=== PATIENT | male | born 1970 | race Caucasian/White ===

== ENCOUNTER 2019-12-17 06:00 | Observation (INO) ==
--- NOTE | 2019-11-20 09:27 | Anesthesiology Consultation ---
Date of Service November 20, 2019 Assessment & Plan (1) Encounter for pre-operative examination: COVID Status: As of 11/19 assessment, patient denies travel to endemic area, known exposure/sick contacts, or symptoms of COVID19. Patient instructed that they and their household members must follow strict social distancing guidelines, wear a mask in public and avoid travel for 14 days prior to surgery. Preoperative COVID19 testing to be completed prior to surgery per surgeon's arra ngements. Patient made aware to self-isolate as much as possible between COVID testing and surgery. K+ of 5.5 on pre-op testing. Chart Review Chart Review: Acceptable Risk for Surgery (pending PCP optimization of K+) and Patient seen in Pre Admission Testing Teaching & Discussion Instructed NPO after midnight before surgery, except medications with 15 cc of water. Medication instructions provided according to the PAT guidelines. History Surgery Operation Date: 12/17/19 07:30 Proposed Procedures p Robotic Laparoscopic Assisted Retropubic Prostatectomy, Possible Open, Possib le Pelvic Lymph Node Dissectomy, Possible Suprapubic Tube Placement - Harpreet Pickett MD Height/Weight Height: 6 ft 1 in Weight: 87 kg Allergies Allergy/AdvReac Type Severity Reaction Status Date / Time Penicillins Allergy Unknown Unknown Verified 11/14/19 12:14 Medications Home Medications Medication Instructions Recorded Confirmed Last Taken No Known Home Medications 08/20/19 11/14/19 Unknown Past Medical History Medical History Hernia Currently with left inguinal hernia Past Family History Family History Father Prostate cancer Mother Hypertension Sister No problems noted. Son No problems noted. Daughter No problems noted. Uncle , Paternal uncle with metastatic prostate cancer Prostate cancer Past Surgical History Surgical History H/O right inguinal hernia repair History of vasectomy Past Anesthesia History No Hx of Anesthesia Complications and No Family Hx of Anesthesia Complications History of PONV No Hx of PONV and No Hx of Motion Sickness Social History Smoking Status: Former smoker Smoking cigarettes per day: Quit 15 yrs ago;Less than 1 PPD x 20 yrs; Do You Dip or Chew Tobacco: Yes (1 CAN PER DAY -- ADVISED NONE AM DOS) Smoking End Date: QUIT 20 YRS AGO Hx Alcohol Use: Yes Alcohol type: beer alcohol intake frequency: a few times a week Hx Substance Use: No Review of Systems Pt denies any recent chest pain, shortness of breath, palpitations, cough, fever, URI, or uncontrolled acid reflux. Physical Exam Vital Signs BP: 141/90 P: 71bpm SPO2: 98% RA T: 98.4 F R: 12 ENMT Mouth: no dental restorations, no chipped teeth and no loose teeth Thyromental Distance: < 3.5 Finger Breadths (3) Mallampati Class: I Neck normal visual inspection; neck extension not limited Respiratory normal respiratory effort Auscultation: lungs clear to auscultation bilaterally Cardiovascular Rate/Rhythm: regular rate and regular rhythm Heart Sounds: no murmur Testing Laboratory Results 11/20/19 09:34 11/20/19 09:34 Blood Type O Positive 11/20/19 09:34 Antibody Screen NEGATIVE 11/20/19 09:34 Electrocardiogram Date: 11/20/19 Findings: + NSR @ (68bpm) Chest X-Ray Date: 11/20/19 Findings: + NAD
--- NOTE | 2019-11-20 10:07 | XRay Report ---
TWO VIEW CHEST CLINICAL HISTORY: Preoperative examination. FINDINGS: PA and lateral chest radiographs are obtained. No prior studies are available for compariso n at the time of dictation. The cardiomediastinal silhouette is unremarkable. The lungs and pleural spaces are clear. There is no pneumothorax. The bony thorax appears intact. IMPRESSION: No active disease in the chest. ACT 112: Negative or not required by law. Electronically signed by: Jovany Mooney M.D. 11/20/2019 10:06 AM
[2019-11-20 10:25] LABS: Basophils # (auto) 0.01 K/uL (0-0.2); Basophils % (auto) 0.2 %; Eosinophils # (auto) 0.03 K/uL (0-0.5); Eosinophils % (auto) 0.7 %; Hematocrit (blood only) 48.2 % (42-52); Lymphocytes # (auto) 1.33 K/uL (1.2-3.4); Lymphocytes % (auto) 32.7 %; Mean Corpuscular Hemoglobin 31.9 pg (25-34); Mean Corpuscular Hgb Conc 33.2 g/dL (32-36); Mean Platelet Volume 10.3 fL (7.4-10.4); Monocytes # (auto) 0.36 K/uL (0.11-0.59); Monocytes % (auto) 8.8 %; Neutrophils # (auto) 2.34 K/uL (1.4-6.5); Neutrophils % (auto) 57.6 %; Platelet Count 197 K/uL (130-400); RDW Coefficient of Variation 12.7 % (11.5-14.5); RDW Standard Deviation 44.2 fL (36.4-46.3); Red Blood Count 5.02 M/uL (4.7-6.1); White Blood Count 4.07 K/uL (4.8-10.8)
[2019-11-20 10:34] LABS: BUN Creatinine Ratio 16.6 (10-20); Calcium 9.2 mg/dl (8.5-10.1); Creatinine Clr Calc Pharmacy 117.3 ml/min; Est GFR (African American) 118.6; Est GFR (Non-African American) 102.3; Potassium 5.5 mmol/L (3.5-5.1)
--- NOTE | 2019-11-20 11:54 | Electrocardiogram Report ---
Test Reason : Blood Pressure : / mmHG Vent. Rate : 068 BPM Atrial Rate : 068 BPM P-R Int : 132 ms QRS Dur : 102 ms QT Int : 390 ms P-R-T Axes : 081 079 067 degrees QTc Int : 414 ms Normal sinus rhythm Normal ECG No previous ECGs available Confirmed by Tadeo Toure ([id number]) on 11/20/2019 11:54:14 AM Referred By: Harpreet Pickett Confirmed By:Jamir Toure
[~2019-12-17 06:00] MED LIST: HEPARIN SOD 5,000 UNIT/0.5 ML VIAL SQ SCH; LR 15ML/HR IV SCH; ceFAZolin 2000MG 2,000 MG/15 ML SYR IV SCH
[2019-12-17] MEDS ORDERED: CLINDAMYCIN 900 MG in DEXTROSE 5% 50 ML IV STA (06:20)
[2019-12-17] MEDS ORDERED: ACETAMINOPHEN 1000 MG/100 ML IV IV ONE (06:23)
[2019-12-17] MEDS ORDERED: SUGAMMADEX SODIUM 200 MG/2 ML VIAL IV ONE (06:23)
[2019-12-17] MEDS ORDERED: ALBUMIN HUMAN 5% 12.5 GM/250 ML VIAL IV ONE (06:24)
[2019-12-17] MEDS ORDERED: fentaNYL citrate 100 MCG/2 ML VIAL ONE (06:39)
[2019-12-17] MEDS ORDERED: HYDROmorphone INJ 2 MG/ML SYR/VIAL ONE (06:39)
[2019-12-17] MEDS ORDERED: MIDAZOLAM HCL 1 MG/ML 2ML VIAL ONE (06:39)
[2019-12-17 06:59] LABS: Calcium 8.8 mg/dl (8.5-10.1); Creatinine Clr Calc Pharmacy 106.4 ml/min; Est GFR (African American) 107.3; Est GFR (Non-African American) 92.6; Potassium 3.9 mmol/L (3.5-5.1)
[2019-12-17] MEDS ORDERED: KETOROLAC 30 MG/ML VIAL IV PRN (07:08)
[2019-12-17] MEDS ORDERED: ATROPINE SULFATE 0.1 MG/ML 10ML SYR IV PRN (07:08)
[2019-12-17] MEDS ORDERED: ONDANSETRON INJ 2 MG/ML 2 ML VIAL IV PRN ×2 (07:08→13:33)
[2019-12-17] MEDS ORDERED: HYDROmorphone INJ 1 MG/ML SYRINGE IV PRN (07:08)
--- NOTE | 2019-12-17 07:08 | History & Physical Bridge Note ---
Date of Service December 17, 2019 History & Physical Bridge Note I have examined the patient, reviewed the History & Physical and in the interval since the performance of the History & Physical I have noted the following changes of clinical significance: no changes noted
--- NOTE | 2019-12-17 07:32 | History & Physical Report ---
Date of Service December 17, 2019 Assessment & Plan (1) Prostate cancer: Prostate ca - here for robotic prostatectomy with lymph node dissection - concurrent inguinal hernia repair with Dr. Giles History of Present Illness Primary Care Provider: Sha Martinez DO 49y/o male w/ prostate cancer and an inguinal hernia presenting for definitive treatment via prostatectomy Allergies Allergy/AdvReac Type Severity Reaction Status Date / Time Penicillins Allergy Unknown Unknown Verified 12/17/19 06:27 Home Medications Home Medications Medication Instructions Recorded Confirmed Type No Known Home Medications 08/20/19 12/17/19 History Past Med/Surg History Medical History Hernia Currently with left inguinal hernia Surgical History H/O right inguinal hernia repair History of vasectomy Family History Father Prostate cancer Mother Hypertension Sister No problems noted. Son No problems noted. Daughter No problems noted. Uncle , Paternal uncle with metastatic prostate cancer Prostate cancer Social History Smoking Status: Never smoker Cigarettes Per Day: Quit 15 yrs ago;Less than 1 PPD x 20 yrs;; Smoking End Date: QUIT 20 YRS AGO; Second Hand Exposure: No; Do You Dip or Chew Tobacco: Yes (1 CAN PER DAY -- ADVISED NONE AM DOS); Hx Alcohol Use: Yes Alcohol type: beer Hx Substance Use: No Preferred Language: Turkmen Communication Ability: Effective Visual Impairment: No Limitations Hearing Ability: Normal General Accounting Clerk Required: No Beliefs That Will Affect Care: None marital status: Current Living Situation: Spouse current occupational status: employed current occupation: [employer] Other Information That Helps Us Care for You: No Feels Safe at Home: Yes Safety Concerns: Feels Safe At This Time caffeine: Yes (2 cups/day) during the past year weight has: remained stable Assistive Devices: Contacts and Glasses Review of Systems All systems reviewed & are unremarkable except as noted in HPI & below Physical Exam Constitutional: well developed and well nourished; no acute distress and not ill appearing Eyes: normal visual huizar by confrontation ENMT: Ears: no hearing impairment Nose: no external nose abnormality Neck: normal visual inspection and trachea midline; no midline deformity Respiratory: normal respiratory effort; no respiratory distress and no labored breathing Chest (Breasts): Chest: normal inspection of chest Musculoskeletal: Head/Neck/Chest: + head abnormal to inspection, normocephalic and head atraumatic Skin: no rashes Trauma: no evidence of skin trauma Neurologic: awake; not confused and not obtunded Speech / Cognition: normal speech Motor/Sensory: no tremor Psychiatric: Orientation: alert and oriented x 3 Results & Data ([facility]) Vital Signs (Past 12 Hours) Vital Signs Temp Pulse Resp BP Pulse Ox 12/17/19 06:36 36.8 C 65 16 123/74 97 12/17/19 06:30 36.8 C 65 16 123/74 97
[2019-12-17] MEDS ORDERED: BUPIVACAINE 0.5 % 5 MG/1 ML MPF 30ML VIAL ONE (07:36)
[2019-12-17] MEDS ORDERED: BELLADONNA/OPIUM SUPP 60 MG SUPP PR ONE (08:07)
[2019-12-17] MEDS ORDERED: DEXAMETHASONE SOD INJ 4 MG/ML VIAL ONE (08:42)
[2019-12-17] MEDS ORDERED: PHENYLEPHRINE 100MCG/ML 5ML SYR ONE (08:42)
[2019-12-17] MEDS ORDERED: ROCURONIUM BROMIDE 10 MG/ML 5 ML VIAL IV ONE (08:42)
[2019-12-17] MEDS ORDERED: PROPOFOL IV EMULSION 10 MG/ML 20 ML VIAL IV ONE (08:42)
[2019-12-17] MEDS ORDERED: LIDOCAINE HCL 2% 2 ML VIAL/AMP(20MG/ML) INFIL ONE (08:42)
[2019-12-17] MEDS ORDERED: ePHEDrine sulfate 50 MG/ML SYR ONE (08:42)
[2019-12-17] MEDS ORDERED: ONDANSETRON INJ 2 MG/ML 2 ML VIAL ONE (08:42)
[2019-12-17] MEDS ORDERED: SURGICEL ABSORB HEMOSTAT 2IN X 14IN TOP ONE (08:53)
[2019-12-17] MEDS ORDERED: FLOSEAL HEMOSTATIC MATRIX 10ML TOP ONE (10:37)
--- NOTE | 2019-12-17 11:41 | Operative Report ---
PG Post Operative Report Pre & Post Diagnosis Operation Date: 12/17/19 07:30 Pre-Op Diagnosis: Prostate Cancer, Left inguinal hernia Post-Op Diagnosis: Prostate Cancer, Left inguinal hernia I identified the patient and participated in the time-out.: Yes Procedure Operation Date: 12/17/19 07:30 Actual Procedures p Robotic Laparoscopic-Assisted Retropubic Prostatectomy - Harpreet Pickett MD s Left Robotic Laparoscopic Inguinal Hernia Repair with Mesh(Left) - Dillon Giles MD Surgeon Tadeo Pickett MD Imaging Center Manager Kanika Chavarria co-surgeonDillon Giles; Estimated Blood Loss 50 Findings Consistent with Post-Op Diagnosis Specimens Periprostatic fat Prostate and seminal vesicles Description of Procedure The patient was identified in the preoperative holding area, appropriate informed consents were reviewed and completed, and he was transported to the operating suite. Subcutaneous heparin was administered in the pre-operative holding area. Upon arrival in the operating suite, he received appropriate antibiotics and general anesthesia. He was positioned in dorsal lithotomy, a B&O suppository was inserted after digital rectal exam, and he was prepped and draped in standard fashion. A Maldonado catheter was inserted in the sterile field. A Veress needle was passed per umbilicus with uniform insufflation of the abdomen to 15mmHg. He was placed in steep Trendelenburg position. A periumbilical incision was then made to accommodate a 12mm Visiport with 10mm 0degree laparoscope. Inspection of the abdomen was carried out, and there was no evidence of traumatic entry or injury secondary to the Veress needle. After confirming a clear anterior abdominal wall, ports were subsequently placed in standard robotic prostatectomy fashion without incident. At that time Dr. Giles took over the console and performed a left inguinal hernia repair. Mesh was placed. I temporarily tacked the peritoneum over the mesh utilizing a series of Weck clips. And then begin to proceed with the remaining portion of the standard prostatectomy. There were no complications to Dr. Giles's portion of the case. There was minimal blood loss. The left lateral aspect of the sigmoid was mobilized off of the left pelvic side wall to allow the pouch of Lit to be appropriately visualized. I then made an incision in the pouch of Lit, overlying the seminal vesicles. Both SVs as well as the ampullae of the vasa were entirely dissected, with the vasa transected 3cm from the prostate. The medial umbilical ligaments were then controlled with bipolar electrocautery just inferior to the umbilicus. Following cauterization, they were divided utilizing monopolar cautery. A peritoneal incision was carried from this location to the medial aspect of the internal inguinal rings bilaterally with care to avoid opening through the ring. This incision was concluded when the vas deferens was reached. Dissection of the bladder and prostate off of the posterior aspect of the pubic arch was completed allowing full visualization of the prostate. The fat overlying the prostate was removed en bloc and passed off the table as a specimen labeled "periprostatic fat". The endopelvic fascia was cleared during this portion of the procedure, and subsequently opened - first on the right and then the left. The incision through the endopelvic fascia began near the prostate-bladder junction and was carried to the apex with extreme care to preserve all lateral levator musculature as well as the periurethral musculature and sphincter complex. I additionally preserved the puboprostatic ligaments. I then controlled the DVC with a 2-0 V-lock suture in overlapping/figure of 8 fashion. This DVC complex was then tacked to the underside of the pubic symphysis utilizing the same stitch. My attention then returned to the prostate, with identification of the bladder neck aided by gentle traction on the Maldonado catheter and lateral to medial pressure at the presumed level of the bladder neck with the robotic instruments. An anterior cystotomy was made, the Maldonado balloon deflated and the catheter g uided through the incision to allow anterior retraction. I attempted to preserve maximal bladder neck musculature as I circumferentially dissected around the bladder neck. After incision through the posterior aspect of the mucosa, the dissection was carried through detrusor muscle until the bilateral ampullae of the vasa were identified. The previously dissected vasa and SVs were brought through the incision and used to elevated the prostate anteriorly. A posterior plane behind the prostate was then developed - splitting Denonvilliers's fascia. This dissection was carried as far as possible towards the apex as well as far as possible laterally. An incision in the lateral prostatic fascia was then made bilaterally to facilitate control of the vascular pedicles and preservation of the nerve bundles. Vasculature running along the posterior/lateral aspect of the prostate was preserved as well as the tissue containing the nerves. He appeared to have an excellent nerve sparing. The pedicles were then controlled with a series of Weck clips. The apical attachments of the prostate were remaining at that stage. The DVC was divided after control with bipolar cautery over the prostate. Continuous inspection from anterior and lateral views allowed me to closely follow the apical contour of the prostate and maximally preserve urethral length and tissue. The prostate was entirely freed at that point, and collected in an EndoCatch bag before being moved out of the field of vision. Hemostasis was confirmed and anastomosis of the bladder and urethra was completed utilizing a double armed V- Lock stitch. A new Maldonado catheter was inserted and the anastomosis tested with irrigation. There was no evidence of leak. FloSeal was placed around the anastomotic site. The robot was undocked, the specimen extracted through expansion of the ann marie- umbilical camera port. The fascia was closed with a series of 0-PDS figure of 8 stitches. The right assistant field hockey coach port was closed in two layers - with a figure of 8 0-Vicryl to reapproximate the fascia followed by 4-0 Monocryl to close the skin. Monocryl was used to close all other skin incisions. All wounds were dressed with Dermabond. The case was concluded and the patient taken to the PACU in stable condition. Kanika Chavarria assisted from incision to closure. Dr. Giles performed his portion of the case independently and will be dictating that separately. I attest to the content of the Intraoperative Record and any orders documented therein. Any exceptions are noted below.
--- NOTE | 2019-12-17 11:46 | Operative Report (OR) ---
DATE OF OPERATION: 12/17/2019 PREOPERATIVE DIAGNOSIS: Left inguinal hernia. POSTOPERATIVE DIAGNOSIS: Left indirect inguinal hernia. PROCEDURE: Laparoscopic robotic-assisted repair of left indirect inguinal hernia. SURGEON: Dillon Giles MD. IT TRAINING SPECIALIST: Tadeo Pickett MD. FINDINGS: The patient had a moderate-sized indirect inguinal hernia. There was no direct or femoral component. The cord structures appeared normal. TECHNIQUE: The access to the abdomen, placement of trocars and docking of the robot will be dictated by Dr. Pickett. Once that was accomplished, the instruments were passed. I attended the console. I opened the peritoneum approximately 5 cm anterior to the anterior surface of the internal ring beginning at the medial umbilical ligament and working laterally towards the ASIS. The medial dissection of the peritoneal flap was then performed working down towards the pubic bone until the pubic bone was identified. It was dissected approximately 2 cm posterior to the pubic bone. That dissection was performed using sharp cautery and blunt dissection where appropriate. I then performed the lateral dissection working from anterior to posterior as well. I then worked more medially and encountered the hernia sac. The hernia sac was grasped and dissected out of the canal using blunt cautery and sharp dissection where appropriate. The dissection was carried until the vas deferens was identified. The vas deferens and the venous vessels were fairly densely adherent to the hernia sac, and I had to use a millimeter by millimeter dissection until the adhesions became more flimsy and then was able to use blunt dissection to separate them. The 'Y' between the vas deferens and vessels was identified and was dissected for a centimeter and a half more posterior to that. I then performed additional medial and lateral dissection underneath the pubic bone until there was a space created from the line 2 cm posterior to the pubic bone laterally. A large Prograf inguinal hernia mesh was placed and it fit nicely. It was secured to the tissue just above the pubic bone and to the anterior abdominal wall medial and lateral to the vessels. This was done with a 3-0 Vicryl suture. The mesh was secured and fit nicely. The remainder of the prostatectomy procedure will be dictated by Dr. Pickett. I attest to the content of the Intraoperative Record and any orders documented therein. Any exception s are noted below.
[2019-12-17 12:04] LABS: Eosinophils # (auto) 0.01 K/uL (0-0.5); Eosinophils % (auto) 0.1 %; Hematocrit (blood only) 43.5 % (42-52); Hemoglobin 14.8 g/dL (14.0-18.0); Immature Granulocytes # (auto) 0.01 K/uL (0.00-0.02); Immature Granulocytes % (auto) 0.1 %; Lymphocytes # (auto) 0.73 K/uL (1.2-3.4); Lymphocytes % (auto) 8.2 %; Mean Corpuscular Hemoglobin 33.1 pg (25-34); Mean Corpuscular Volume 97.3 fL (80-100); Mean Platelet Volume 9.7 fL (7.4-10.4); Monocytes # (auto) 0.12 K/uL (0.11-0.59); Monocytes % (auto) 1.4 %; Neutrophils # (auto) 8.01 K/uL (1.4-6.5); Neutrophils % (auto) 90.2 %; Platelet Count 177 K/uL (130-400); RDW Coefficient of Variation 12.4 % (11.5-14.5); RDW Standard Deviation 44.3 fL (36.4-46.3); Red Blood Count 4.47 M/uL (4.7-6.1); White Blood Count 8.88 K/uL (4.8-10.8)
[2019-12-17 12:22] LABS: BUN Creatinine Ratio 10.5 (10-20); Calcium 8.3 mg/dl (8.5-10.1); Creatinine Clr Calc Pharmacy 81.3 ml/min; Est GFR (African American) 77.5; Est GFR (Non-African American) 66.8; Potassium 4.4 mmol/L (3.5-5.1)
--- NOTE | 2019-12-17 12:50 | Anesthesiology Progress Note ---
Date of Service December 17, 2019 Anesthesia Post Procedure Vital Signs Vital Signs: Temp Pulse Pulse Resp BP BP Pulse Ox 12/17/19 12:35 78 14 111/71 99 12/17/19 12:20 36.9 C 81 14 122/73 100 12/17/19 12:10 81 21 118/77 98 12/17/19 12:00 100 H 27 H 115/72 93 12/17/19 11:50 86 20 110/65 96 12/17/19 11:43 36.6 C 80 18 109/64 97 12/17/19 06:36 36.8 C 65 16 123/74 97 12/17/19 06:30 36.8 C 65 16 123/74 97 Transfer of Care Handoff Completed per policy Notes Mental Status: alert / awake / arousable Patient Amnestic to Procedure: Yes Nausea / Vomiting: adequately controlled Pain: adequately controlled Airway Patency, RR, SpO2: stable & adequate BP & HR: stable & adequate Hydration State: stable & adequate Anesthetic Complications: no major complications apparent
[2019-12-17] MEDS ORDERED: oxyCODONE HCL IR 5 MG TAB (IMMEDIATE RELEASE) PO PRN ×2 (13:33)
[2019-12-17] MEDS ORDERED: MoRPHine SULFATE 2 MG/ML CARP IV PRN ×2 (14:09→14:10)
[2019-12-17] MEDS: CLINDAMYCIN 900 MG in DEXTROSE 5% 50 ML IV SCH (15:40)
[2019-12-17] MEDS: LACTATED RINGER'S 1,000 ML IV SCH (15:40)
[2019-12-17] MEDS: HEPARIN SOD 5,000 UNIT/0.5 ML VIAL SQ SCH (21:10)
[2019-12-18] MEDS: CLINDAMYCIN 900 MG in DEXTROSE 5% 50 ML IV SCH ×2 (00:57→07:46)
[2019-12-18] MEDS: LACTATED RINGER'S 1,000 ML IV SCH ×2 (00:57→11:04)
[2019-12-18] MEDS: ACETAMINOPHEN 325 MG TAB PO PRN ×2 (03:35→09:58)
[2019-12-18] MEDS: HEPARIN SOD 5,000 UNIT/0.5 ML VIAL SQ SCH (07:46)
[2019-12-18 07:48] LABS: Basophils # (auto) 0.01 K/uL (0-0.2); Basophils % (auto) 0.1 %; Eosinophils # (auto) 0.01 K/uL (0-0.5); Eosinophils % (auto) 0.1 %; Hematocrit (blood only) 36.2 % (42-52); Hemoglobin 12.4 g/dL (14.0-18.0); Immature Granulocytes # (auto) 0.01 K/uL (0.00-0.02); Immature Granulocytes % (auto) 0.1 %; Lymphocytes # (auto) 1.43 K/uL (1.2-3.4); Lymphocytes % (auto) 16.8 %; Mean Corpuscular Hemoglobin 33.2 pg (25-34); Mean Corpuscular Hgb Conc 34.3 g/dL (32-36); Mean Corpuscular Volume 96.8 fL (80-100); Monocytes # (auto) 0.86 K/uL (0.11-0.59); Monocytes % (auto) 10.1 %; Neutrophils # (auto) 6.18 K/uL (1.4-6.5); Neutrophils % (auto) 72.8 %; Platelet Count 172 K/uL (130-400); RDW Coefficient of Variation 12.6 % (11.5-14.5); RDW Standard Deviation 44.2 fL (36.4-46.3); Red Blood Count 3.74 M/uL (4.7-6.1)
[2019-12-18 08:20] LABS: BUN Creatinine Ratio 11.4 (10-20); Calcium 8.3 mg/dl (8.5-10.1); Creatinine Clr Calc Pharmacy 117.3 ml/min; Est GFR (African American) 118.6; Est GFR (Non-African American) 102.3; Potassium 4.2 mmol/L (3.5-5.1)
--- NOTE | 2019-12-18 09:12 | Urology Progress Note ---
Date of Service December 18, 2019 Assessment & Plan (1) Prostate cancer: Postop day #1 status post robotic prostatectomy and left inguinal hernia repair Recovering appropriately Ambulatory Advance diet Home with Maldonado catheter Likely discharge this afternoon Admission and Anticipated Discharge Date Admission Date: December 17, 2019 Subjective Doing very well status post combined prostatectomy and left robotic inguinal hernia repair He is ambulatory He is not nauseated He has controlled pain The catheter is somewhat annoying but otherwise no subjective complaints Review of Systems Review of Systems: All systems reviewed & are unremarkable except as noted in HPI & below Physical Exam Physical Exam: Ecchymosis of the scrotum otherwise no bruising across the abdomen Incisions appropriate abdomen soft Results & Data ([facility]) Vital Signs (Past 12 Hours) Vital Signs Temp Pulse Resp BP Pulse Ox 12/18/19 08:00 37.3 C 88 18 133/87 96 12/18/19 03:55 36.7 C 75 22 116/75 95 12/17/19 23:44 37.2 C 74 20 124/66 94 PG Care Time/CCT Total # of Minutes Spent Total Time Spent with Patient: Total time spent is greater than 50% in coordination of care (as documented) at patient's floor/unit and/or counseling patient: Coding Level of Care Code None Diagnoses Prostate cancer C61
--- NOTE | 2019-12-19 09:30 | Discharge Summary ---
Date of Service December 19, 2019 Admission HPI Per Admitting Provider 49y/o male w/ prostate cancer and an inguinal hernia presenting for definitive treatment via prostatectomy Principal Diagnosis Prostate cancer Discharge Data Allergies Allergy/AdvReac Type Severity Reaction Status Date / Time Penicillins Allergy Unknown Unknown Verified 12/17/19 06:27 Procedures Performed Operation Date: 12/17/19 07:30 Actual Procedures p Robotic Laparoscopic-Assisted Retropubic Prostatectomy - Harpreet Pickett MD s Left Robotic Laparoscopic Inguinal Hernia Repair with Mesh(Left) - Dillon Giles MD Hospital Course (1) Prostate cancer: Patient admitted for a robotic prostatectomy - details of the procedure as dictated previously in my operative report - in summary, he tolerated the procedure very well - he was in stable condition overnight with appropriate urine output and stable labs - he was subsequently discharged home with a hernandez catheter - he was in stable condition at the time of discharge Total Time Total Time Spent Total Time Spent (In Minutes): 15 Total Time Includes: Examination of the Patient, Discharge Planning, Medication Reconciliation, Communication With Other Providers and Other Discharge Plan Discharge Items Patient Disposition: Home - Self-Care Reason For Visit: Prostate Cancer Discharge Diagnosis: Prostate Cancer Activity: Per Instructions section Lifting: No more than 25 pounds Bathing Comment: Ok to shower in 1 day, no tub bath or soaking Sexual Activity: Wait until after follow-up appointment Exercise/Sports: Wait until after follow-up appointment Driving/Machine Use: No driving while taking prescription pain medication Non-emergency contact: Urologist Call non-emergency contact if: your pain is not controlled, your pain is w orsening, your pain is concerning for you and you have a fever Follow-up/Referrals: Harpreet Pickett MD [Physician] - 12/30/19 8:45 am hSa Martinez DO [Primary Care Provider] - [facility],RN [FAKE FOR SCHEDULES] - 12/23/19 10:00 am Diet: Regular Addtl Attending Provider Instructions: Please take all medications as prescribed and keep all follow-ups as scheduled. Please call our office at [phone] with any questions, concerns or need to reschedule appointments for any reason. We are happy to assist you We have sent an antibiotic to your pharmacy of choice. Please begin antibiotic as prescribed the day BEFORE your scheduled voiding trial at [facility]. Please continue antibiotic every 12 hours through the day AFTER your voiding trial. Activity: We recommend having someone with you for the first few days after surgery to help care for you. For the first 2 weeks after surgery, we would like you to get up and walk around your house. However, we recommend limit physical activity that would increase your heart rate. This will allow your body to rest and heal. Take naps if you feel tired. Don't lift anything heavier than 10 pounds, mow the law or ride a bicycle until your follow-up appointment. Please avoid long car rides. Home Care: Unless directed otherwise, drink 6 to 8 glasses of water a day (enough to keep your urine light colored). This will also help keep a healthy flow of urine. We recommend using a stool softener for the first two weeks to avoid constipation. Hernandez Catheter or Suprapubic Catheter care: Keep the catheter well secured with either a leg back or leg strap with large bag. Empty your bag when it's about half full. You may notice some blood in the bag. This is normal after surgery and while the catheter is in place. Use mild soap (such as Dove or Dial) and water to wash the catheter and the head of your penis daily, or more frequently if needed. Return to your normal diet, we encourage good protein intake to promote healing. You may shower as normal. Please avoid tub baths or soaking until catheter removed and incisions well healed. Wearing sweat pants while you have the catheter is recommended, they will be more comfortable. Follow-up Your follow up appointments for having your catheter removed, and follow up with your physician should already be scheduled. If you have any questions regarding this, please contact our office. Your final pathology report will be discussed at your physician follow-up appointment. Call [facility] at [phone] right away if you have any of the following: Chest pain or trouble breathing (call [phone] or go to the hospital) Fever of 101F or higher, uncontrolled vomiting Heavy bleeding, clots, or bright red blood from the catheter Catheter that falls out or stops draining Foul-smelling discharge from your catheter Redness, swelling, warmth, or increased pain at your incision site Drainage, pus, or bleeding from your incision Pending Studies at Discharge: Yes Stand-Alone Forms: My [facility], Opioid Pain Management, Smoking Cessation Medications and DC Order Prescriptions: New oxycodone-acetaminophen [Percocet] 5-325 mg tablet 1 tab PO TID PRN (Reason: pain) Qty: 7 RF: 0 docusate sodium [Colace] 100 mg capsule 100 mg PO BID Qty: 60 RF: 0 ciprofloxacin HCl 500 mg tablet 500 mg PO BID 3 Days Qty: 6 RF: 0 No Action No Known Home Medications RF: 0 Discharge Orders: Discharge Order (Routine); Ordered 12/18/19 Ordered By: Kanika Gasca/Other Patient Handouts: Emptying and Cleaning Your ..., Indwelling Urinary Catheter Dc, Discharge Instructions Caring for ... Admission Data Admit Date/Time: 12/17/19 07:33 Attending Provider: Harpreet Pickett Admit Provider: Harpreet Pickett Primary Care Provider: Sha Martinez Other Interventions: Discharge Summary Assessment (RN) Last Done: 12/18/19 11:05 Coding Level of Care Code D/C Day Management <30 mins Diagnoses Prostate cancer C61
== END 2019-12-18 13:37 | disposition home or self-care (01) ==
LOC: ASU 06:00 → INTOOBSV 07:33 → 3N 07:33

== ENCOUNTER 2020-01-04 13:49 | Inpatient (IN) ==
[2020-01-04] MEDS ORDERED: SODIUM CHLORIDE 0.9% 1000ML 1,000 ML IV ONE ×2 (14:28→15:39)
--- NOTE | 2020-01-04 14:32 | Emergency Department Note ---
Impression & Plan BRADLEY (acute kidney injury), Hernia, Abdominal pain ED Provider Note NAME: BRIANNA FARLEY AGE: 49 SEX: M : 1970 ARRIVES VIA: Walk-In INFORMANT: Patient ED PROVIDER(S): Justino Pugh DO CHIEF COMPLAINT: Left lower quadrant abdominal pain HPI: Patient is a 49-year-old male status post prostate surgery and left inguinal hernia repair by Dr. Pickett and Dr. Giles performed on the third of this month. He presents for dysuria after urinating since this past Monday. Pain has become worse and is worse with walking now. He also noticed a mass in his left groin/scrotum. He denies any urgency or frequency. No nausea, vomiting or diarrhea. Last bowel movement was within the past 24 hours. Pain is dull and the longest that its last after urinating is an hour. He did talk with Dr. Pickett's office last night and they prescribed him a pill to change the color of his urine. He has not taken it since last night. ROS: See above HPI for pertinent positives & negatives. A total of 10 systems reviewed and were otherwise negative. PAST MEDICAL HISTORY:See Below PAST SURGICAL HISTORY:See Below FAMILY HISTORY:See Below SOCIAL HISTORY:See Below HOME MEDICATIONS:See Below ALLERGIES:See Below VITALS:See Below PHYSICAL EXAMINATION: GENERAL: Sitting up in bed, alert, well appearing, well nourished, no distress, non-toxic EYE EXAM: normal conjunctiva. OROPHARYNX: no exudate, no erythema, lips, buccal mucosa, and tongue normal and mucous membranes are moist NECK: supple, no nuchal rigidity, no adenopathy, non-tender LUNGS: Clear to auscultation. Normal chest wall mechanics HEART: no murmurs, S1 normal and S2 normal ABDOMEN: abdomen soft, non-tender, normo-active bowel sounds, no masses, no rebound or guarding. : Normal external genitalia with a firm palpable mass in the left inguinal canal tracking down to the scrotum SKIN: Abdominal port incisions are clean dry and intact UPPER EXTREMITIES: upper extremities are grossly normal. LOWER EXTREMITIES: No pitting edema. NEURO EXAM: Normal sensorium, cranial nerves II-XII grossly intact, normal speech, no gross weakness of arms, no gross weakness of legs. MEDICAL DECISION MAKING: Patient is a 49-year-old male who presents the ER status post prostate surgery and left inguinal hernia repair for pain after urination which has been present since this past Monday. He is not been eating and drinking as much as usual due to the pain. IV was established blood work was obtained. Labs show no significant leukocytosis or anemia. BMP with a creatinine of 2.38 up from a baseline of 0.78. LFTs bilirubin was unremarkable. Lipase was normal. UA had no white cells or leukocytes but did have nitrates. With the nitrites was concern for possible UTI and did cover him with a gram of Rocephin. Covid was negative. Patient was given IV fluids. CT abdomen pelvis showed a left inguinal hernia but no other acute pathology and patient was updated bedside dis cussed with hospitalist for further evaluation due to the acute kidney injury. Triage Nursing notes reviewed. Prior medical records reviewed Vital Signs: reviewed and remarkable for tachy Differential diagnosis: Differential diagnoses includes but is not limited to gastritis, peptic ulcer disease, GERD, gallbladder disease, pancreatitis, small bowel obstruction, acute coronary syndrome, pericarditis, ischemic bowel, irritable bowel disease, ir ritable bowel syndrome, appendicitis, diverticulitis, malignancy, hernia, urinary tract infection, torsion, [/ectopic (if female)], perforation, trauma, infectious. ER treatment provided: See below Diagnostics interpreted by me: ECG: Sinus rhythm rate of 65 First-degree AV block No PVCs QTC 428 T wave inversion in lead III No significant change from previous performed in November 2019 Cardiac Monitoring: An order was placed for continuous cardiac monitoring. The monitor shows a rate of 69 with sinus rhythm. Laboratory studies: As stated above and show below. Imaging studies: CT abdomen pelvis confirms left inguinal hernia but no other acute pathology Consultation(s): Discussed with the hospitalist Dr. Jess Carpenter for further evaluation ED COURSE: Procedures: none Critical Care: None Past Med/Surg History Medical History (Updated 01/04/20 @ 19:55 by Justino Pugh DO) Hernia Currently with left inguinal hernia Surgical History H/O right inguinal hernia repair History of vasectomy Family History Father Prostate cancer Mother Hypertension Sister No problems noted. Son No problems noted. Daughter No problems noted. Uncle , Paternal uncle with metastatic prostate cancer Prostate cancer Social History (Updated 01/04/20 @ 16:22 by Jess Carpenter DO) Smoking Status: Former smoker Cigarettes Per Day: 1 CAN/DAY; Number of Years Since Quit: 20; Second Hand Exposure: No; Do You Dip or Chew Tobacco: Yes; Hx Alcohol Use: Yes Alcohol type: beer Alcohol Intake Frequency Comment: 1- 2x/week Hx Substance Use: No Preferred Language: Azeri Communication Ability: Effective Visual Impairment: No Limitations Hearing Ability: Normal [employer] Required: No Beliefs That Will Affect Care: None marital status: Current Living Situation: Spouse current occupational status: employed current occupation: [employer] Other Information That Helps Us Care for You: No Feels Safe at Home: Yes Safety Concerns: Feels Safe At This Time caffeine: Yes (2 cups/day) during the past year weight has: remained stable Assistive Devices: None Allergies Allergies Allergy/AdvReac Type Severity Reaction Status Date / Time Penicillins Allergy Unknown Unknown Verified 01/04/20 15:01 Home Meds Home Medications Medication Instructions Recorded Confirmed tadalafil 5.5 mg PO DAILY PRN 01/04/20 01/04/20 Previous Rx's Medication Instructions Recorded phenazopyridine 100 mg tablet 100 mg PO TID PRN #10 tab 01/03/20 Results & Data (ED) Vital Signs Vital Signs - 24 hr 01/04/20 14:02 01/04/20 14:08 01/04/20 15:50 Temperature 37.3 C Temperature Source Oral Pulse Rate 107 H Pulse Rate [Apical] 75 Respiratory Rate 20 18 Respiratory Effort / Characteristics Non-Labored Respiratory Depth Normal Respiratory Pattern Regular Blood Pressure 138/77 Blood Pressure [Left Arm] 127/86 Blood Pressure Mean 97 Blood Pressure Mean [Left Arm] 99 Blood Pressure Position Sitting Pulse Oximetry 97 97 97 Oxygen Delivery Method Room Air Room Air Room Air Sepsis Recent Fever Within 48 Hours No Sepsis New/Unexplained Change in Mental Status No Sepsis Action Taken by Nursing No Action Required Laboratory Data Result diagrams: 01/04/20 14:28 01/04/20 14:28 Lab Results 01/04/20 01/04/20 01/04/20 Range/Units 14:28 14:28 14:30 WBC 8.87 (4.8-10.8) K/uL RBC 4.71 (4.7-6.1) M/uL Hgb 15.4 (14.0-18.0) g/dL Hct 44.7 (42-52) % MCV 94.9 (80-100) fL MCH 32.7 (25-34) pg MCHC 34.5 (32-36) g/dL RDW Std Deviation 42.2 (36.4-46.3) fL RDW Coeff of Yenny 12.2 (11.5-14.5) % Plt Count 291 (130-400) K/uL MPV 9.7 (7.4-10.4) fL Immature Gran % (Auto) 0.2 % Neut % (Auto) 68.1 % Lymph % (Auto) 15.0 % [place] % (Auto) 10.0 % Eos % (Auto) 6.4 % Baso % (Auto) 0.3 % Neut # (Auto) 6.03 (1.4-6.5) K/uL Lymph # (Auto) 1.33 (1.2-3.4) K/uL [place] # (Auto) 0.89 H (0.11-0.59) K/uL Eos # (Auto) 0.57 H (0-0.5) K/uL Baso # (Auto) 0.03 (0-0.2) K/uL Immature Gran # (Auto) 0.02 (0.00-0.02) K/uL Sodium 137 (136-145) mmol/L Potassium 4.2 (3.5-5.1) mmol/L Chloride 105 (98-107) mmol/L Carbon Dioxide 28 (21-32) mmol/L Anion Gap 5.0 (3-11) BUN 25 H (7-18) mg/dl Creatinine 2.38 H (0.6-1.4) mg/dl Est Cr Clr Drug Dosing 42.1 ml/min Est GFR ( Amer) 36.3 Est GFR (Non-Af Amer) 31.3 BUN/Creatinine Ratio 10.5 (10-20) Glucose 98 (70-99) mg/dl Calcium 9.5 (8.5-10.1) mg/dl Total Bilirubin 0.9 (0.2-1) mg/dl AST 14 L (15-37) U/L ALT 34 (12-78) U/L Alkaline Phosphatase 91 (45-117) U/L Total Protein 7.8 (6.4-8.2) gm/dl Albumin 3.7 (3.4-5.0) gm/dl Globulin 4.1 H (2.5-4.0) gm/dl Albumin/Globulin Ratio 0.9 (0.9-2) Lipase 85 (73-393) U/L Urine Color Dark Yellow Urine Appearance Clear (Clear) Urine pH 6.5 (4.5-7.5) Ur Specific [place] 1.021 (1.000-1.030) Urine Protein 1+ H (Negative) Urine Glucose (UA) Negative (Negative) Urine Ketones 1+ H (Negative) Urine Blood 3+ H (Negative) Urine Nitrite Positive A (Negative) Urine Bilirubin Negative (Negative) Urine Urobilinogen Negative (Negative) Ur Leukocyte Esterase Negative (Negative) Urine WBC (Auto) 1-5 (0-5) /hpf Urine RBC (Auto) >30 H (0-4) /hpf U Hyaline Cast (Auto) 0 (0-5) /lpf U Epithel Cells (Auto) 5-10 H (0-5) /lpf Urine Bacteria (Auto) Negative (Negative) Administered Medications Sodium Chloride (1/2 Nss) 1,000 mls @ 80 mls/hr IV .[id number] MARILYN Stop: 02/03/20 18:23 Last Admin: 01/04/20 18:34 Dose: 80 mls/hr Documented by: [id number] Discontinued Medications Sodium Chloride (Nss 1000ml) 1,000 mls @ 999 mls/hr IV .Q1H1M ONE Stop: 01/04/20 15:28 Last Infusion: 01/04/20 16:02 Dose: 0 mls/hr Documented by: [id number] Admin: 01/04/20 14:46 Dose: 999 mls/hr Documented by: [id number] Ceftriaxone Sodium (Rocephin) 1,000 mg in 50 mls @ 100 mls/hr IV NOW STA Stop: 01/04/20 16:08 Last Infusion: 01/04/20 16:31 Dose: 0 mls/hr Documented by: [id number] Admin: 01/04/20 16:00 Dose: 100 mls/hr Documented by: [id number] Sodium Chloride (Nss 1000ml) 1,000 mls @ 999 mls/hr IV .Q1H1M ONE Stop: 01/04/20 16:39 Last Infusion: 01/04/20 17:06 Dose: 0 mls/hr Documented by: [id number] Admin: 01/04/20 16:00 Dose: 999 mls/hr Documented by: [id number] Discharge Plan Visit Data Chief Complaint: Abdominal Pain Stated Complaint: REMOVAL PROSTATE/HERNIA REPAIR IN [place]IN [place]S ED Provider: Justino Pugh Discharge Problem: BRADLEY (acute kidney injury), Hernia, Abdominal pain Patient Disposition: Admitted As Inpatient Discharge Instructions Interventions: ED Discharge Assessment Last Done: 01/04/20 17:31 Discharge Problem: Abdominal pain Qualifiers: Abdominal location: unspecified location Qualified Code(s): R10.9 - Unspecified abdominal pain
[2020-01-04 14:37] LABS: Basophils # (auto) 0.03 K/uL (0-0.2); Basophils % (auto) 0.3 %; Eosinophils # (auto) 0.57 K/uL (0-0.5); Eosinophils % (auto) 6.4 %; Hematocrit (blood only) 44.7 % (42-52); Hemoglobin 15.4 g/dL (14.0-18.0); Immature Granulocytes # (auto) 0.02 K/uL (0.00-0.02); Immature Granulocytes % (auto) 0.2 %; Lymphocytes # (auto) 1.33 K/uL (1.2-3.4); Mean Corpuscular Hemoglobin 32.7 pg (25-34); Mean Corpuscular Hgb Conc 34.5 g/dL (32-36); Mean Corpuscular Volume 94.9 fL (80-100); Mean Platelet Volume 9.7 fL (7.4-10.4); Monocytes # (auto) 0.89 K/uL (0.11-0.59); Neutrophils # (auto) 6.03 K/uL (1.4-6.5); Neutrophils % (auto) 68.1 %; Platelet Count 291 K/uL (130-400); RDW Coefficient of Variation 12.2 % (11.5-14.5); RDW Standard Deviation 42.2 fL (36.4-46.3); Red Blood Count 4.71 M/uL (4.7-6.1); White Blood Count 8.87 K/uL (4.8-10.8)
[2020-01-04 14:53] LABS: Albumin Level 3.7 gm/dl (3.4-5.0); BUN Creatinine Ratio 10.5 (10-20); Calcium 9.5 mg/dl (8.5-10.1); Creatinine Clr Calc Pharmacy 42.1 ml/min; Est GFR (African American) 36.3; Est GFR (Non-African American) 31.3; Potassium 4.2 mmol/L (3.5-5.1)
[2020-01-04 14:56] LABS: Albumin Globulin Ratio 0.9 (0.9-2); Bilirubin,Total 0.9 mg/dl (0.2-1); Globulin 4.1 gm/dl (2.5-4.0); Total Protein 7.8 gm/dl (6.4-8.2)
[2020-01-04 15:10] LABS: Appearance Urine Clear (Clear); Bacteria Urine Automated Negative (Negative); Bilirubin Urine Negative (Negative); Blood Urine 3+ (Negative); Cast Urine Automated 0 /lpf (0-5); Color Urine Dark Yellow; Glucose Urine UA Negative (Negative); Ketones Urine 1+ (Negative); Leukocyte Esterase Urine Negative (Negative); Nitrite Urine Positive (Negative); Protein Urine 1+ (Negative); RBC Urine Automated >30 /hpf (0-4); Specific Gravity Urine 1.021 (1.000-1.030); Urobilinogen Urine Negative (Negative); pH Urine 6.5 (4.5-7.5)
--- NOTE | 2020-01-04 15:29 | CT Scan Report ---
ABDOMEN AND PELVIS CT WITHOUT CONTRAST CT DOSE: 396.39 mGy.cm HISTORY: lower abd pain BRADLEY w/ ? hernia l groin TECHNIQUE: Multiaxial CT images of the abdomen and pelvis were performed without contrast. A dose lo wering technique was utilized adhering to the principles of ALARA. COMPARISON STUDY: None. FINDINGS: The lung bases are essentially clear. No pneumoperitoneum. No pneumatosis. No fractures wit hin the visualized osseous structures. There is a small fluid-filled left inguinal hernia. Small amou nt of scattered low density fluid consistent with ascites. Mild bladder wall thickening. The unenhanc ed liver, gallbladder, spleen, adrenal glands, pancreas, and kidneys are unremarkable. No hydronephro sis. No retroperitoneal lymphadenopathy. Normal caliber abdominal aorta. Suboptimal evaluation for hal wel pathology due to the lack of intravenous and oral contrast. However, there is no definite bowel w all thickening or obstruction. The appendix is partially obscured by the ascites but appears to be no rmal in caliber. IMPRESSION: 1. Small fluid filled left inguinal hernia. 2. Small amount of scattered ascites. 3. Mild bladder wall thickening. Recommend correlation with urinalysis to exclude a cystitis. 4. No definite bowel wall thickening or obstruction. ACT 112: Negative or not required by law. Electronically signed by: Levon Lyman M.D. 01/04/2020 3:27 PM
[2020-01-04] MEDS ORDERED: cefTRIAXone SODIUM 1,000 MG/50 ML BAG IV STA (15:39)
--- NOTE | 2020-01-04 16:19 | History & Physical Report ---
Date of Service January 04, 2020 Assessment & Plan (1) Dysuria: Possible UTI CT AP notes cystitis UA neg for leuk est, + for nitrites Urine cx pending Given sx and recent prostatectomy, will continue ceftriaxone as started in the ED Pyridimine PRN (2) BRADLEY (acute kidney injury): Dehydration Monitor with IVF (3) Gross hematuria: (4) Prostate cancer: s/p prostatectomy and L inguinal hernia repair on 12/[address] Pickett and Dr. Giles (5) DVT prophylaxis: SCDs History of Present Illness Primary Care Provider: Sha Martinez DO 49 y/o M c/o pain with urination. Pt is s/p prostatectomy and L inguinal hernia repair on 12/[address] Pickett and Chan. He was doing quite well until around Monday when he started to have lower abd pain with urination only. This continued to become more intense and starting yesterday, pt noted lower abd pain with ambulation as well. He called Dr. Pickett's office and was given a prescription for pyridimine. This did not help at all. He has been passing small blood clots periodically since his surgery, but there has been more clots passed in the last few days. Over the last week his PO intake has dropped as well due to lack of appetite and wanting to not urinate as often due to the pain. He has no prior hx of similar sx. Pt denies fever, SOB, chest pain, n/v/c/d, LE pain or swelling. Allergies Allergy/AdvReac Type Severity Reaction Status Date / Time Penicillins Allergy Unknown Unknown Verified 01/04/20 15:01 Home Medications Medication Instructions Recorded Confirmed Type phenazopyridine 100 mg tablet 100 mg PO TID PRN #10 tab 01/03/20 01/04/20 Rx tadalafil 5.5 mg PO DAILY PRN 01/04/20 01/04/20 History Past Med/Surg History Medical History (Updated 01/04/20 @ 16:24 by Jess Carpenter DO) Hernia Currently with left inguinal hernia Surgical History H/O right inguinal hernia repair History of vasectomy Family History Father Prostate cancer Mother Hypertension Sister No problems noted. Son No problems noted. Daughter No problems noted. Uncle , Paternal uncle with metastatic prostate cancer Prostate cancer Social History (Updated 01/04/20 @ 16:22 by Jess Carpenter DO) Smoking Status: Former smoker Cigarettes Per Day: 1 CAN/DAY; Number of Years Since Quit: 20; Second Hand Exposure: No; Do You Dip or Chew Tobacco: Yes; Hx Alcohol Use: Yes Alcohol type: beer Alcohol Intake Frequency Comment: 1- 2x/week Hx Substance Use: No Preferred Language: Spanish Communication Ability: Effective Visual Impairment: No Limitations Hearing Ability: Normal Branch [employer] Required: No Beliefs That Will Affect Care: None marital status: Current Living Situation: Spouse current occupational status: employed 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 Other Information That Helps Us Care for You: No Feels Safe at Home: Yes Safety Concerns: Feels Safe At This Time caffeine: Yes (2 cups/day) during the past year weight has: remained stable Assistive Devices: None Review of Systems Review of Systems: Pertinent positives and negatives reviewed in HPI--all others negative Physical Exam Constitutional: WD/WN, vitals as above Eyes: normal visual huizar by confrontation and + anicteric sclerae Neck: normal visual inspection and trachea midline Respiratory: normal respiratory effort, lungs clear to auscultation Cardiovascular: Rate/Rhythm: regular rate and regular rhythm Gastrointestinal (Abdomen): Inspection/Auscultation: abdomen not distended Percussion/Palpation: + abdomen tender (mild along lower abdomen) and abdomen soft Musculoskeletal: Head/Neck/Chest: normocephalic and head atraumatic negative for edema, peripheral pulses intact Skin: no rashes, warm and dry Neurologic: awake; not confused Speech / Cognition: normal speech Psychiatric: A+Ox3, euthymic affect Results & Data Results & Data ([facility]) Vital Signs (Past 12 Hours) Vital Signs Temp Pulse Resp BP Pulse Ox 01/04/20 14:08 97 01/04/20 14:02 37.3 C 107 H 20 138/77 97 Diagnostic Findings CTAP: 1. Small fluid filled left inguinal hernia. 2. Small amount of scattered ascites. 3. Mild bladder wall thickening. Recommend correlation with urinalysis to exclude a cystitis. 4. No definite bowel wall thickening or obstruction. Code Status & VTE Plan Code Status Full code VTE Prophylaxis Plan VTE Prophylaxis will be ordered: Yes PG Care Time/CCT Total # of Minutes Spent Total Time Spent with Patient: Total time spent is greater than 50% in coor dination of care (as documented) at patient's floor/unit and/or counseling patient: Coding Level of Care Code 92680 Initial Inpt Care Lvl 3 Diagnoses Dysuria R30.0 BRADLEY (acute kidney injury) N17.9 Gross hematuria R31.0 Prostate cancer C61 DVT prophylaxis Z29.9
[2020-01-04] MEDS ORDERED: MAGNESIUM HYDROXIDE SUSP 30 ML UDC PO PRN (18:24)
[2020-01-04] MEDS ORDERED: PHENAZOPYRIDINE HCL 100 MG TAB PO PRN (18:24)
[2020-01-04] MEDS ORDERED: NON-FORMULARY MEDICATION (Tadalafil 5 mg tablet) PO PRN (18:24)
[2020-01-04] MEDS ORDERED: ONDANSETRON INJ 2 MG/ML 2 ML VIAL IV PRN (18:24)
[2020-01-04] MEDS: SODIUM CHLORIDE 0.45 % 1,000 ML IV SCH (18:34)
[2020-01-05] MEDS: ACETAMINOPHEN 325 MG TAB PO PRN ×3 (03:53→11:15)
[2020-01-05] MEDS: cefTRIAXone SODIUM 2,000 MG in DEXTROSE 5% 50 ML IV SCH (05:28)
[2020-01-05 06:02] LABS: Basophils # (auto) 0.02 K/uL (0-0.2); Basophils % (auto) 0.3 %; Eosinophils # (auto) 0.56 K/uL (0-0.5); Eosinophils % (auto) 7.5 %; Hematocrit (blood only) 40.1 % (42-52); Hemoglobin 13.6 g/dL (14.0-18.0); Immature Granulocytes # (auto) 0.02 K/uL (0.00-0.02); Immature Granulocytes % (auto) 0.3 %; Lymphocytes # (auto) 1.37 K/uL (1.2-3.4); Lymphocytes % (auto) 18.3 %; Mean Corpuscular Hemoglobin 32.6 pg (25-34); Mean Corpuscular Hgb Conc 33.9 g/dL (32-36); Mean Corpuscular Volume 96.2 fL (80-100); Monocytes # (auto) 0.58 K/uL (0.11-0.59); Monocytes % (auto) 7.8 %; Neutrophils # (auto) 4.93 K/uL (1.4-6.5); Neutrophils % (auto) 65.8 %; Platelet Count 285 K/uL (130-400); RDW Coefficient of Variation 12.3 % (11.5-14.5); RDW Standard Deviation 43.2 fL (36.4-46.3); Red Blood Count 4.17 M/uL (4.7-6.1); White Blood Count 7.48 K/uL (4.8-10.8)
[2020-01-05 06:27] LABS: BUN Creatinine Ratio 11.2 (10-20); Calcium 8.8 mg/dl (8.5-10.1); Creatinine Clr Calc Pharmacy 42.8 ml/min; Est GFR (Non-African American) 31.9; Potassium 4.4 mmol/L (3.5-5.1)
[2020-01-05] MEDS: SODIUM CHLORIDE 0.45 % 1,000 ML IV SCH ×2 (07:05→16:44)
--- NOTE | 2020-01-05 10:25 | Urology Consultation ---
Date of Consultation January 05, 2020 Assessment & Plan (1) Abdominal pain: Discussed options. Discussed imaging. Discussed Incomplete emptying and UTI with discomfort and abd pain. Discussed kidney function and concern with increasing Cr this morning with hydration. Discussed options for management. Dicussed cathter placement. Risks and benefits discussed. 16 Fr Coude hernandez placed by myself by standard sterile technique without major issues. Tolerated. 500 cc of dark yellow urine immediately drained. Will maintain through today. Plan to reassess in AM and monitor for change. Continue with supportive care. Patient's complicated medical and surgical history was reviewed and summarized above. All imaging was reviewed and read by myself. We will continue to monitor and plan to monitor with supportive care (2) BRADLEY (acute kidney injury): (3) Gross hematuria: (4) Prostate cancer: History of Present Illness Attending Physician: Jess Carpenter, History of Present Illness Consult for urinary issues with incomplete emptying and possible retention with UTI and BRADLEY. History of RALP approx 3 weeks ago. Patient has mild to moderate discomfort in pelvis and groin going to back and side in waves. Had been severe over weekend. Medications were not helping. Had worsened into Monday and came to ER. UTI like symptoms as well. Has been deconditioned from this. Has decreased mobility significantly with acute issues. Patient has not had complete return to normal bowel function. Denies bleeding. No severe nausea or vomiting. Currently no fevers. Discussed with patient multifactorial nature of urinary issues, retention, and incomplete bladder emptying. Patient had recent major pelvic surgery. Has not had considerable leaking. Discussed concerns and issues. Discussed decreased mobility and trouble voiding. Discussed issues related to deconditioning and weakened state. Discussed possibility that patient had more moderate to severe issues and with the acute illness and deconditioning these issues became more prevalent and obvious. Discussed bowel function and possible issues related to decrease in function and its relation to other pelvic organs and systems. Discussed different medications, will use during hospitalization and their effect on ability to empty. Discussed options with increasing cr and concern for worsening of BRADLEY Allergies Allergy/AdvReac Type Severity Reaction Status Date / Time Penicillins Allergy Unknown Unknown Verified 01/04/20 15:01 Home Medications Medication Instructions Recorded Confirmed Type phenazopyridine 100 mg tablet 100 mg PO TID PRN #10 tab 01/03/20 01/04/20 Rx tadalafil 5.5 mg PO DAILY PRN 01/04/20 01/04/20 History Patient History Medical History Hernia Currently with left inguinal hernia Surgical History H/O right inguinal hernia repair History of vasectomy Family History Father Prostate cancer Mother Hypertension Sister No problems noted. Son No problems noted. Daughter No problems noted. 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 Patient is well nourished and well kept. HEENT: Normocephalic Atraumatic. Inspection normal. Cranial Nerves 2-12 Grossly intact. Nares are clear. Neck is supple. Normal inspection of face. Normal inspection of neck. Neurologic: No deficits on inspection. Baseline for motor function and sensory. Psychologic: Normal affect. Respiratory: Nonlabored. No use of accessory muscles. No tachypnea or dyspnea. Cardiovascular: No tachycardia Skin: [place] and Dry. No rashes or visible lesions. Extremities: Moving without issues. No motor deficits on inspection Lymphatics: No edema Abdomen: Soft Non-distended. No acites. No rebound or guarding. Results & Data ([facility]) Vital Signs (Past 12 Hours) Vital Signs Temp Pulse Resp BP Pulse Ox 01/05/20 07:57 36.7 C 65 18 116/76 97 01/04/20 23:00 37.2 C 18 105/50 L 97 PG Care Time/CCT Total # of Minutes Spent Total Time Spent with Patient: Total time spent is greater than 50% in coordination of care (as documented) at patient's floor/unit and/or counseling patient: Coding Level of Care Code 10073 Inpt Consult Level 5 Diagnoses Abdominal pain R10.9 Abdominal location: unspecified location BRADLEY (acute kidney injury) N17.9 Gross hematuria R31.0 Prostate cancer C61 (1) Abdominal pain Abdominal location: unspecified location Qualified Code(s): R10.9 - Unspecified abdominal pain
--- NOTE | 2020-01-05 14:56 | Hospitalist Progress Note ---
Date of Service January 05, 2020 Assessment & Plan (1) Dysuria: Possible UTI CT AP notes cystitis UA neg for leuk est, + for nitrites Urine cx pending Given sx and recent prostatectomy, will continue ceftriaxone as started in the ED Pyridimine PRN Urology c/s, hernandez placed with 500cc urine drained immediately Will keep hernandez and monitor UOP (2) BRADLEY (acute kidney injury): Dehydration Monitor with IVF IVF increased as no improvement overnight, slight improvement in cr at 3p draw Repeat in AM (3) Gross hematuria: (4) Prostate cancer: s/p prostatectomy and L inguinal hernia repair on 12/[address] Pickett and Dr. Giles (5) DVT prophylaxis: SCDs Admission and Anticipated Discharge Date Admission Date: January 04, 2020 Subjective Pt states that he is still having lower abd pain, but it is not as burning as prior. Ongoing clots in urine, but less. Pt denies fever, SOB, chest pain, n/v/c/d, LE pain or swelling. Tolerating PO without issue. Pt was awaiting urology c/s at time of our discussion. Review of Systems Review of Systems: Pertinent positives and negatives reviewed in HPI--all others negative Physical Exam Constitutional: WD/WN, vitals as above Eyes: normal visual huizar by confrontation and + anicteric sclerae Neck: normal visual inspection and trachea midline Respiratory: normal respiratory effort, lungs clear to auscultation Cardiovascular: Rate/Rhythm: regular rate and regular rhythm Gastrointestinal (Abdomen): Inspection/Auscultation: abdomen not distended Percussion/Palpation: + abdomen tender (mild along lower abdomen) and abdomen soft Musculoskeletal: Head/Neck/Chest: normocephalic and head atraumatic Skin: no rashes, warm and dry Neurologic: awake; not confused Speech / Cognition: normal speech Psychiatric: A+Ox3, euthymic affect Results & Data Results & Data ([facility]) Vital Signs (Past 12 Hours) Vital Signs Temp Pulse Resp BP Pulse Ox 01/05/20 11:41 37.3 C 74 20 113/78 95 01/05/20 07:57 36.7 C 65 18 116/76 97 PG Care Time/CCT Total # of Minutes Spent Total Time Spent with Patient: Total time spent is greater than 50% in coordination of care (as documented) at patient's floor/unit and/or counseling patient: Coding Level of Care Code 63632 Subseq Hosp Care Lvl 3 Diagnoses Dysuria R30.0 BRADLEY (acute kidney injury) N17.9 Gross hematuria R31.0 Prostate cancer C61 DVT prophylaxis Z29.9
[2020-01-05 15:35] LABS: BUN Creatinine Ratio 11.8 (10-20); Calcium 8.1 mg/dl (8.5-10.1); Est GFR (African American) 42.4; Est GFR (Non-African American) 36.6; Potassium 4.1 mmol/L (3.5-5.1)
[2020-01-06] MEDS: SODIUM CHLORIDE 0.45 % 1,000 ML IV SCH ×2 (01:05→08:06)
[2020-01-06] MEDS: cefTRIAXone SODIUM 2,000 MG in DEXTROSE 5% 50 ML IV SCH (05:39)
[2020-01-06 08:21] LABS: BUN Creatinine Ratio 12.5 (10-20); Calcium 9.1 mg/dl (8.5-10.1); Creatinine Clr Calc Pharmacy 98.3 ml/min; Est GFR (Non-African American) 87.1
--- NOTE | 2020-01-06 09:19 | Urology Progress Note ---
Date of Service January 06, 2020 Assessment & Plan (1) BRADLEY (acute kidney injury): 49 yo M recently s/p RALP admitted for BRADLEY, possible UTI. - Pt subjectively improved today, tolerating Maldonado catheter - Labs reviewed - Creatinine improved to 1.02 today - Plan of care discussed with Dr. Pickett - Maintain Maldonado catheter for 7-10 days to allow max drainage - Recommend transition to PO Cipro BID x 7 days upon discharge - Ok to d/c to home with Maldonado catheter from perspective - Will arrange f/u outpatient with our service for voiding trial in approximately 1 week. Thank you for allowing us to participate in the acute care of Mr. Orozco. Please reconsult us with additional questions, concerns or changes in patient status. Admission and Anticipated Discharge Date Admission Date: January 04, 2020 Subjective Pt seen and examined at bedside this AM. Awake, alert, dressed and sitting up in bedside chair. No issues overnight. Offers no complaints at present. No suprapubic, flank, or abdominal pain. Maldonado catheter intact, patent, and draining clear yellow urine. Tolerating Maldonado catheter without bother. Feeling better since insertion. No nausea or vomiting. Tolerating diet. BM this AM. No fever or chills. Chart review: Afebrile. Creatinine 1.02 (previously 2.09). UC&S no growth. On IV Ceftriaxone. Review of Systems Constitutional: as per Subjective / HPI Gastrointestinal: as per Subjective / HPI Genitourinary: + as per Subjective / HPI Physical Exam Constitutional: well developed and well nourished; no acute distress and not ill appearing Eyes: no scleral abnormality Neck: normal visual inspection Respiratory: normal respiratory effort and able to speak in complete sentences; no respiratory distress and no labored breathing Cardiovascular: Extremities: no pedal edema Gastrointestinal (Abdomen): Inspection/Auscultation: abdomen normal to inspection; abdomen not distended Percussion/Palpation: abdomen soft; abdomen nontender and no guarding Musculoskeletal: Head/Neck/Chest: normocephalic and head atraumatic Extremities: extremities normal to inspection Skin: Surgical incisions healing well, no erythema, C/D/I Neurologic: moves all extremities and awake Psychiatric: Orientation: alert and oriented x 3 Genitourinary: no CVA tenderness Maldonado intact, patent, draining clear yellow urine Results & Data ([facility]) Vital Signs (Past 12 Hours) Vital Signs Temp Pulse Resp BP Pulse Ox 01/06/20 07:16 36.7 C 79 18 126/85 95 01/05/20 23:00 36.7 C 64 18 112/68 95 PG Care Time/CCT Total # of Minutes Spent Total Time Spent with Patient: Total time spent is greater than 50% in coordination of care (as documented) at patient's floor/unit and/or counseling patient: Coding Level of Care Code 74709 Subseq Hosp Care Lvl 2 Diagnoses BRADLEY (acute kidney injury) N17.9
[2020-01-06] MEDS ORDERED: LACTOBACILLUS ACIDOPHILUS 1 GM PACK PO ONE (12:04)
--- NOTE | 2020-01-06 12:30 | Discharge Summary ---
Date of Service January 06, 2020 Admission HPI Per Admitting Provider 49 y/o M c/o pain with urination. Pt is s/p prostatectomy and L inguinal hernia repair on 12/[address] Pickett and Chan. He was doing quite well until around Monday when he started to have lower abd pain with urination only. This continued to become more intense and starting yesterday, pt noted lower abd pain with ambulation as well. He called Dr. Pickett's office and was given a prescription for pyridimine. This did not help at all. He has been passing small blood clots periodically since his surgery, but there has been more clots passed in the last few days. Over the last week his PO intake has dropped as well due to lack of appetite and wanting to not urinate as often due to the pain. He has no prior hx of similar sx. Pt denies fever, SOB, chest pain, n/v/c/d, LE pain or swelling. Principal Diagnosis Pt is feeling much better. He has had no further abd pain since placement of hernandez yesterday. He has been walking around the halls without issue. Tolerating PO without issue and he feels his appetite is much better as well. He did have two loose bowel movements this AM. Pt denies fever, SOB, chest pain, n/v, LE pain or swelling. Discharge Exam Constitutional WD/WN, vitals as above Eyes normal visual huizar by confrontation and + anicteric sclerae Neck normal visual inspection and trachea midline Respiratory normal respiratory effort, lungs clear to auscultation Cardiovascular Rate/Rhythm: regular rate and regular rhythm Gastrointestinal (Abdomen) Inspection/Auscultation: abdomen not distended Percussion/Palpation: abdomen soft; abdomen nontender Musculoskeletal Head/Neck/Chest: normocephalic and head atraumatic Skin no rashes, warm and dry Neurologic awake; not confused Speech / Cognition: normal speech Psychiatric A+Ox3, euthymic affect Discharge Data Allergies Allergy/AdvReac Type Severity Reaction Status Date / Time Penicillins Allergy Unknown Unknown Verified 01/04/20 15:01 Consultations 01/04/20 15:39 ED Decision to Admit Stat 01/04/20 18:24 Consult Urology Routine Ordered Studies 01/04/20 14:57 CT abd pelvis wo con Stat Hospital Course (1) Dysuria: Possible UTI CT AP notes cystitis UA neg for leuk est, + for nitrites Urine cx with <1000 bacteria, will still finish course of abx given recent surg tyler Given sx and recent prostatectomy, was continued on ceftriaxone during admission, and will complete abx course with an additional 7 days of keflex Pyridimine PRN Urology c/s, hernandez placed 01/04 with 500cc urine drained immediately Recs for d/c with hernandez and f/u in office on 01/12 Probiotics for loose stools related to abx use (2) BRADLEY (acute kidney injury): Resolved s/p IVF and hernandez insertion (3) Gross hematuria: (4) Prostate cancer: s/p prostatectomy and L inguinal hernia repair on 12/[address] Pickett and Dr. Giles (5) DVT prophylaxis: SCDs Total Time Total Time Spent Total Time Spent (In Minutes): >30 Total Time Includes: Examination of the Patient, Discharge Planning, Medication Reconciliation, Communication With Other Providers and Other Discharge Plan Discharge Items Patient Disposition: Home - Self-Care Reason For Visit: BRADLEY POST-OP Discharge Diagnosis: Post-op urinary retention Activity: Resume your previous activity Non-emergency contact: Urologist Call non-emergency contact if: you have any medication questions, your symptoms worsen and your pain is not controlled Follow-up/Referrals: Harpreet Pickett MD [Physician] - (follow up on 01/12) Sha Martinez DO [Primary Care Provider] - Diet: Regular Addtl Attending Provider Instructions: You should call Dr. Pickett's office or return to the ED if your symptoms return. You should start taking a probiotic. The one I recommend for most patients is Jarrow EPS 5 billion. It is a mix of 8 different bacteria. You can find this product at [employer] [employer] in [employer]. You should start with taking 1 capsule, twice a day. This will help with the diarrhea you are having from your antibiotic. You should take the probiotic away from your antibiotic, try to take it an hour before or an hour after you take the antibiotic. There are other good probiotics to take, this is just a brand that I am familiar with. If you cannot find this one specifically, you should look for one that has a mix of Lactobacillus and Bifidobacter--the pharmacist should be able to help you find this, but it should be listed on the ingredients list. If after a few days you are still having diarrhea, you can increase up to 4 capsules a day. You should take this for at least the next 30 days, even though you will finish your antibiotics prior to that time. Pending Studies at Discharge: No Stand-Alone Forms: My [facility], Smoking Cessation Medications and DC Order Prescriptions: New cephalexin [Keflex] 750 mg capsule 750 mg PO Q12H 7 Days Qty: 14 RF: 0 Continued phenazopyridine [Pyridium] 100 mg tablet 100 mg PO TID PRN (Reason: pain) Qty: 10 RF: 0 tadalafil 5 mg tablet 5.5 mg PO DAILY PRN (Reason: Erectile Dysfunction) RF: 0 Discharge Orders: Discharge Order (Routine); Ordered 01/06/20 Ordered By: Jess Gasca/Other Patient Handouts: Emptying and Cleaning Your ..., Discharge Instructions Caring for ... Admission Data Admit Date/Time: 01/04/20 16:23 Attending Provider: Jess Carpenter Admit Provider: Jess Carpenter Primary Care Provider: Sha Martinez Other Providers: Jess Carpenter ; Harpreet Pickett Coding Level of Care Code D/C Day Management >30 mins Diagnoses Dysuria R30.0 BRADLEY (acute kidney injury) N17.9 Gross hematuria R31.0 Prostate cancer C61 DVT prophylaxis Z29.9
== END 2020-01-06 14:43 | disposition home or self-care (01) | DRG 683 ==
LOC: ED 13:49 → 2N 16:23